=== PATIENT | male | born 1965 | race Caucasian/White ===

== ENCOUNTER 2022-09-29 11:10 | Day surgery (SDC) | payer BC, OTHER ==
[~2022-09-29] VITALS: Ht 170.2 cm; Wt 76.7 kg
[~2022-09-29 11:10] MED LIST: NS 1,000 ML IV ONE
[2022-09-29] MEDS ORDERED: propofoL 200 MG/20 ML VIAL As Ordered ONE ×3 (12:53→13:28)
[2022-09-29 14:23] VITALS: BP 139/78
== END 2022-09-29 14:20 | disposition home or self-care (01) ==
LOC: M OPP 11:10
PROVIDERS: ATTEND Internal Medicine Gastroenterology
DX: Z12.11 Encounter for screening for malignant neoplasm of colon (principal); Z80.0 Family history of malignant neoplasm of digestive organs; D12.6 Benign neoplasm of colon, unspecified; K64.4 Residual hemorrhoidal skin tags; K64.8 Other hemorrhoids; K57.30 Diverticulosis of large intestine without perforation or abscess without bleeding; K21.00 Gastro-esophageal reflux disease with esophagitis, without bleeding; K22.2 Esophageal obstruction; K29.70 Gastritis, unspecified, without bleeding; Z87.891 Personal history of nicotine dependence; Z91.013 Allergy to seafood

== ENCOUNTER → 2023-12-06 | Outpatient (REF) | payer BC ==
[2023-12-06 17:47] LABS: APPEARANCE, URINE CLEAR (CLEAR); BACTERIA, URINE AUTO NEGATIVE (NEGATIVE); BILIRUBIN, URINE AUTO NEGATIVE (NEGATIVE); BLOOD, URINE BLOOD 1+ (NEGATIVE); COLOR, URINE YELLOW (YELLOW); GLUCOSE, URINE (UA) AUTO NEGATIVE (NEGATIVE); KETONE, URINE AUTO NEGATIVE (NEGATIVE); LEUKOCYTE ESTERASE, URINE AUTO NEGATIVE (NEGATIVE); MUCUS, URINE SMALL (NEGATIVE); NITRITE, URINE AUTO NEGATIVE (NEGATIVE); PROTEIN, URINE AUTO 1+ mg/dL (NEGATIVE); RBC, URINE AUTO 7 /HPF (0-3); SQUAMOUS EPITHELIAL CELL UR AU 0 /HPF (0-6); UROBILINOGEN, URINE AUTO 0.2 mg/dL (0.0-2.0); WBC, URINE AUTO 1 /HPF (0-3)
[2023-12-06 18:51] LABS: BASO % 0.2 % (0.0-1.0); EOS # 0.1 10^3/uL (0.0-0.5); EOS % 0.4 % (0.0-3.0); HEMATOCRIT 38.4 % (42.0-52.0); HEMOGLOBIN 13.2 g/dl (13.5-17.5); LYMPH # 1.1 10^3/uL (1.5-5.0); LYMPH % 9.5 % (24.0-44.0); MEAN CORPUSCULAR HEMOGLOBIN 30.6 pg (27.0-33.0); MEAN CORPUSCULAR HGB CONC 34.4 g/dl (32.0-36.5); MEAN CORPUSCULAR VOLUME 88.9 fl (80.0-96.0); MONO # 0.7 10^3/uL (0.0-0.8); MONO % 5.8 % (2.0-8.0); NEUTROPHILS # 9.7 10^3/uL (1.5-8.5); NEUTROPHILS % 83.8 % (36.0-66.0); PLATELET COUNT, AUTOMATED 310 10^3/uL (150-450); RED BLOOD COUNT 4.32 10^6/uL (4.30-6.10); WHITE BLOOD COUNT 11.6 10^3/uL (4.0-10.0)
[2023-12-06 19:17] LABS: LIPASE 34 U/L (12-53)
[2023-12-06 19:18] LABS: AMYLASE 104 U/L (30-118)
[2023-12-06 19:19] LABS: ALBUMIN 4.1 G/DL (3.2-5.2); ALKALINE PHOSPHATASE 63 U/L (46-116); ALT/SGPT 18 U/L (7.0-40); AST/SGOT < 8 U/L (<34); BILIRUBIN,TOTAL 0.4 MG/DL (0.3-1.2); BLOOD UREA NITROGEN 22 MG/DL (9-23); CALCIUM LEVEL 9.4 MG/DL (8.5-10.1); CARBON DIOXIDE LEVEL 26 MMOL/L (20-31); CHLORIDE LEVEL 103 MMOL/L (98-107); CHOLESTEROL LEVEL 190 MG/DL (<200); CHOLESTEROL RISK RATIO 4.41 (<5); CREATININE FOR GFR 0.95 MG/DL (0.70-1.30); GLOMERULAR FILTRATION RATE > 60.0 (>56); GLUCOSE, FASTING 104 MG/DL (60-100); LDL CHOLESTEROL 114.6 MG/DL (<100); POTASSIUM SERUM 4.6 MMOL/L (3.5-5.1); PSA SCREENING 1.27 NG/ML (< 4.00); SODIUM LEVEL 134 MMOL/L (136-145); TRIGLYCERIDES LEVEL 162 MG/DL (<150)
== END ==
LOC: M SFHCCLAY 10:35
PROVIDERS: ATTEND Nurse Practitioner Family
DX: R10.11 Right upper quadrant pain (principal); K52.9 Noninfective gastroenteritis and colitis, unspecified; Z87.438 Personal history of other diseases of male genital organs; Z13.1 Encounter for screening for diabetes mellitus; Z13.220 Encounter for screening for lipoid disorders
CPT/HCPCS: 80053; 80061; 81001; 82150; 83036; 83690; 85025; 87086; G0103

== ENCOUNTER → 2023-12-07 | Outpatient (CLI) | payer BC ==
[~2023-12-07] MED LIST changes: +GASTROGRAFIN SOLUTION 30ML As Ordered ONE; +ISOVUE-370 76% 100ML VIAL As Ordered ONE; -NS 1,000 ML IV ONE
== END ==
LOC: M RAD 07:30
PROVIDERS: ATTEND Nurse Practitioner Family
DX: R10.11 Right upper quadrant pain (principal); R10.31 Right lower quadrant pain; R10.32 Left lower quadrant pain; K57.30 Diverticulosis of large intestine without perforation or abscess without bleeding
CPT/HCPCS: 74177; Q9963; Q9967

== ENCOUNTER → 2024-01-12 | Outpatient (REF) | payer BC, OTHER ==
[2024-01-12 14:29] LABS: APPEARANCE, URINE CLEAR (CLEAR); BACTERIA, URINE AUTO NEGATIVE (NEGATIVE); BILIRUBIN, URINE AUTO NEGATIVE (NEGATIVE); BLOOD, URINE BLOOD 1+ (NEGATIVE); COLOR, URINE STRAW (YELLOW); GLUCOSE, URINE (UA) AUTO NEGATIVE (NEGATIVE); KETONE, URINE AUTO NEGATIVE (NEGATIVE); LEUKOCYTE ESTERASE, URINE AUTO NEGATIVE (NEGATIVE); NITRITE, URINE AUTO NEGATIVE (NEGATIVE); PROTEIN, URINE AUTO NEGATIVE (NEGATIVE); RBC, URINE AUTO 1 /HPF (0-3); SQUAMOUS EPITHELIAL CELL UR AU 0 /HPF (0-6); UROBILINOGEN, URINE AUTO 0.2 mg/dL (0.0-2.0); WBC, URINE AUTO 0 /HPF (0-3)
== END ==
LOC: M SMT 12:50
PROVIDERS: ATTEND Urology
DX: N20.0 Calculus of kidney (principal); R82.998 Other abnormal findings in urine

== ENCOUNTER 2024-03-06 11:32 | Day surgery (SDC) | payer BC ==
[~2024-03-06] VITALS: Ht 170.2 cm; Wt 77.0 kg
[~2024-03-06 11:32] MED LIST changes: -GASTROGRAFIN SOLUTION 30ML As Ordered ONE; -ISOVUE-370 76% 100ML VIAL As Ordered ONE; +OMEP40CA5 PO; +SUCR1TAB56 PO
[2024-03-06] MEDS ORDERED: ONDANSETRON 4MG 2ML VIAL As Ordered ONE (13:15)
[2024-03-06] MEDS ORDERED: LIDOCAINE 2% INJ 100 MG/5 ML SYRINGE As Ordered ONE (13:15)
[2024-03-06] MEDS ORDERED: propofoL 200 MG/20 ML VIAL As Ordered ONE (13:15)
[2024-03-06] MEDS ORDERED: fentaNYL 100 MCG/2 ML INJECTION As Ordered ONE (13:16)
[2024-03-06] MEDS ORDERED: MIDAZOLAM INJ 2MG/2ML VIAL As Ordered ONE (13:17)
[2024-03-06] MEDS: ceFAZolin SOD 2 GM in IV 1 EA IV ONE (13:37)
[2024-03-06] MEDS ORDERED: oxyCODONE 5MG TAB PO PRN (14:00)
[2024-03-06] MEDS ORDERED: ONDANSETRON 4MG 2ML VIAL IV PRN (14:00)
[2024-03-06] MEDS ORDERED: PYRI1TAB5 PO (14:10)
[2024-03-06] MEDS ORDERED: MACR100C43 PO (14:10)
[2024-03-06] MEDS: oxyBUTYnin 5 MG TAB PO STA (14:31)
[2024-03-06] MEDS: PHENAZOPYRIDINE 100 MG TAB PO STA (14:31)
[2024-03-06] MEDS: fentaNYL 100 MCG/2 ML INJECTION IV PRN (14:32)
[2024-03-06 15:23] VITALS: BP 155/76; TEMP 97.7; O2SAT 98
== END 2024-03-06 15:25 | disposition home or self-care (01) ==
LOC: M SDC 11:32
PROVIDERS: ATTEND Urology
DX: N30.20 Other chronic cystitis without hematuria (principal); K44.9 Diaphragmatic hernia without obstruction or gangrene; K21.9 Gastro-esophageal reflux disease without esophagitis; G47.33 Obstructive sleep apnea (adult) (pediatric); Z91.013 Allergy to seafood; Z92.3 Personal history of irradiation; Z85.51 Personal history of malignant neoplasm of bladder; Z85.47 Personal history of malignant neoplasm of testis; F12.10 Cannabis abuse, uncomplicated
CPT/HCPCS: 52204; 88305; J0690; J1100; J2250; J2405; J3010

== ENCOUNTER → 2024-12-13 | Outpatient (REF) | payer BC ==
[~2024-12-13] MED LIST changes: +MACR100C43 PO; +PYRI1TAB5 PO
[2024-12-13 18:16] LABS: ALT/SGPT 20.0 U/L (7.0-40); AST/SGOT 17.0 U/L (<34); CALCIUM LEVEL 9.5 MG/DL (8.5-10.1); CARBON DIOXIDE LEVEL 26.0 MMOL/L (20-31); CHLORIDE LEVEL 105.0 MMOL/L (98-107); CHOLESTEROL LEVEL 231.0 MG/DL (<200); CHOLESTEROL RISK RATIO 5.57 (<5); CREATININE FOR GFR 1.09 MG/DL (0.70-1.30); GLOMERULAR FILTRATION RATE 78.7 (>56); LDL CHOLESTEROL 148.0 MG/DL (<100); NON-HDL-C 189.6 MG/DL; POTASSIUM SERUM 4.9 MMOL/L (3.5-5.1); SODIUM LEVEL 142.0 MMOL/L (136-145); TRIGLYCERIDES LEVEL 208.0 MG/DL (<150)
== END ==
LOC: M SFHCCLAY 09:30
PROVIDERS: ATTEND Nurse Practitioner Family
DX: Z00.00 Encounter for general adult medical examination without abnormal findings (principal); Z87.442 Personal history of urinary calculi; K22.2 Esophageal obstruction

== ENCOUNTER → 2025-04-16 | Outpatient (REF) | payer BC ==
[2025-04-16 13:40] LABS: APPEARANCE, URINE CLEAR (CLEAR); BACTERIA, URINE AUTO NEGATIVE (NEGATIVE); BILIRUBIN, URINE AUTO NEGATIVE (NEGATIVE); BLOOD, URINE BLOOD 1+ (NEGATIVE); GLUCOSE, URINE (UA) AUTO NEGATIVE (NEGATIVE); KETONE, URINE AUTO NEGATIVE (NEGATIVE); LEUKOCYTE ESTERASE, URINE AUTO NEGATIVE (NEGATIVE); MUCUS, URINE SMALL (NEGATIVE); NITRITE, URINE AUTO NEGATIVE (NEGATIVE); PROTEIN, URINE AUTO NEGATIVE (NEGATIVE); RBC, URINE AUTO 1 /HPF (0-3); SPECIFIC GRAVITY URINE AUTO 1.020 (1.002-1.035); SQUAMOUS EPITHELIAL CELL UR AU 0 /HPF (0-6); UROBILINOGEN, URINE AUTO 0.2 mg/dL (0.0-2.0); WBC, URINE AUTO 0 /HPF (0-3)
== END ==
LOC: M SMT 13:13
PROVIDERS: ATTEND Nurse Practitioner Family
DX: R31.29 Other microscopic hematuria (principal)